=== PATIENT | male | born 1980 | race Caucasian/White ===

== ENCOUNTER 2016-12-12 21:50 | Emergency (ER) | payer SELFPAY ==
[2016-12-12 22:06] VITALS: O2SAT 98
--- NOTE | 2016-12-12 22:23 | C.PDOC ---
History Of Present Illness 36 year old male who presents to the ER with a complaint of a new onset headache for the past week. Patient states the onset began after he was having an argument and states he has been tense and stressed since then. Patient describes the headache as being constant and generalized; he notes having no relief with tylenol, last dose was yesterday. Denies Hx of migraine, fever, nausea, or vomiting. Patient reports a Hx of anxiety but does not take medication for it. NEW ONSET ROBERTO X 1 WEEK. PS ONSET AFTER ARGUMENT, HAS BEEN TENSE AND STRESSED SINCE. ROBERTO GENERALIZED CONSTANT. NO FEVER, NV, OTHER ASSOC SX. NO RELIEF W TYLENOL, LAST DOSE YEST. NO MEDS TAKEN TODAY. DENIES HO MIGRAINE. PS HAS ANXIETY BUT DOES NOT TAKE MEDS FOR IT. EXAM MILD DIST NONTOXIC HEENT NO PHOTOPHOBIA SUPPLE NEURO INTACT PSYCH MILD ANXIETY BUT CALM COOPERATIVE. NO ACUTE PSYCHOSIS REMAINDER NEG Time Seen by Provider: 12/12/16 22:17 Chief Complaint (Nursing): Headache History Per: Patient History/Exam Limitations: no limitations Onset/Duration Of Symptoms: Days Current Symptoms Are (Timing): Still Present Preceeding Symptoms: None Associated Symptoms: denies: Photophobia, Blurred Vision, Nausea, Vomiting, Extremity Weakness Recent travel outside of the [place]: No Past Medical History Reviewed: Historical Data, Nursing Documentation, Vital Signs Vital Signs: Last Vital Signs Temp 98.0 F 12/12/16 23:57 Pulse 78 12/12/16 23:57 Resp 16 12/12/16 23:57 BP 111/69 12/12/16 23:57 Pulse Ox 98 12/12/16 23:57 - Medical History PMH: No Chronic Diseases Surgical History: No Surg Hx Family History: States: Unknown Family Hx - Social History Hx Alcohol Use: No Hx Substance Use: No - Immunization History Hx Tetanus Toxoid Vaccination: No Hx Influenza Vaccination: No Hx Pneumococcal Vaccination: No Review Of Systems Constitutional: Negative for: Fever, Chills Gastrointestinal: Negative for: Nausea, Vomiting, Diarrhea Neurological: Positive for: Headache. Negative for: Weakness, Numbness, Dizziness Physical Exam - Physical Exam Appears: Non-toxic, Other (Mild distress. Mild anxiety but calm and cooperative. No acute psychosis.) Skin: Warm, Dry Head: Atraumatic, Normacephalic Eye(s): bilateral: Normal Inspection (No photophobia), PERRL, EOMI Ear(s): Bilateral: Normal Oral Mucosa: Moist Neck: Normal, Supple Chest: Symmetrical, No Tenderness Cardiovascular: Rhythm Regular, No Murmur Respiratory: Normal Breath Sounds, No Rales, No Rhonchi, No Wheezing Gastrointestinal/Abdominal: Soft, No Tenderness Neurological/Psych: Oriented x3, Normal Speech, Normal Cognition ED Course And Treatment O2 Sat by Pulse Oximetry: 98 Pulse Ox Interpretation: Normal Reevaluation Time: 23:51 Reassessment Condition: Improved Medical Decision Making Medical Decision Making: Plan: * CT head * Xanax * Toradol * Reglan * Tylenol Disposition Counseled Patient/Family Regarding: Studies Performed, Diagnosis, Need For Followup - Disposition Referrals: [facility] [Outside] [facility] [Outside] Disposition: HOME/ ROUTINE Disposition Time: 23:51 Condition: IMPROVED Additional Instructions: TAKE TYLENOL AND MOTRIN DIRECTED FOR HEADACHE. Instructions: Tension Headache (ED) Forms: [facility] (Burkinan), Work Excuse - Clinical Impression Clinical Impression: Headache - Scribe Statement The provider has reviewed the documentation as recorded by the Scribe Alex Zafar All medical record entries made by the Scribe were at my direction and personally dictated by me. I have reviewed the chart and agree that the record accurately reflects my personal performance of the history, physical exam, medical decision making, and the department course for this patient. I have also personally directed, reviewed, and agree with the discharge instructions and disposition.
[2016-12-12 23:58] VITALS: BP 111/69; PULSE 78; RESP 16; TEMP 98
--- NOTE | 2016-12-13 08:17 | CT ---
PROCEDURE: CT HEAD WITHOUT CONTRAST. HISTORY: HEADACHE COMPARISON: None available. TECHNIQUE: Axial computed tomography images were obtained through the head/brain without intravenous contrast. Radiation dose: Total exam DLP = 811.52 mGy-cm. This CT exam was performed using one or more of the following dose reduction techniques: Automated exposure control, adjustment of the mA and/or kV according to patient size, and/or use of iterative reconstruction technique. FINDINGS: HEMORRHAGE: No intracranial hemorrhage. BRAIN: No mass effect or edema. No atrophy or chronic microvascular ischemic changes. VENTRICLES: No hydrocephalus. CALVARIUM: Unremarkable. PARANASAL SINUSES: Unremarkable as visualized. No significant inflammatory changes. MASTOID AIR CELLS: Unremarkable as visualized. No inflammatory changes. OTHER FINDINGS: None. IMPRESSION: No acute intracranial pathology identified. Preliminary impression was provided by virtual radiologic.
== END 2016-12-12 23:57 | disposition home or self-care (01) ==
LOC: C.ER 21:50
DX: R51 Headache (principal)
CPT/HCPCS: 70450; 96372; 99285; J1885; J2765